=== PATIENT | male | born 1940 | race African-American/Black ===

== ENCOUNTER 2019-04-19 08:29 | Emergency (ER) | payer MEDICARE, MEDICAID ==
[~2019-04-19] VITALS: Ht 188 cm; Wt 98.0 kg
[~2019-04-19 08:29] MED LIST: ALLO300T2 PO; AMLO10TA80 PO; ATOR10TA69 PO; DOCU-150 PO; LOSA100T32 PO; METO100T16 PO
[2019-04-19 09:26] LABS: CLARITY URINE CLEAR (CLEAR); COLOR URINE YELLOW (YELLOW); KETONES URINE 1+ (NEGATIVE); LEUKOCYTE ESTERASE URINE NEGATIVE (NEGATIVE); NITRITE URINE NEGATIVE (NEGATIVE); OCCULT BLOOD URINE NEGATIVE (NEGATIVE); PH URINE 6.5 (4.5-8.0); PROTEIN URINE NEGATIVE (NEGATIVE); SPECIFIC GRAVITY URINE 1.023 (1.005-1.030)
[2019-04-19 10:05] LABS: BASOPHILS % 0.9 % (0.0-2.0); EOSINOPHILS % 1.8 % (0.0-5.0); HEMATOCRIT. 46.4 % (42.0-52.0); HEMOGLOBIN. 15.1 g/dL (14.0-18.0); LYMPHOCYTES % 19.9 % (20.0-50.0); MEAN CORPUSCULAR HEMOGLOBIN 30.5 pg (28.0-32.0); MEAN CORPUSCULAR VOLUME 93.5 fL (80.0-94.0); MEAN PLATELET VOLUME 9.1 fl (7.4-10.4); MONOCYTES % 6.8 % (2.0-8.0); NEUTROPHILS % 70.6 % (40.0-76.0); PLATELET 153 x1000/uL (130-400); RED BLOOD CELL COUNT 4.96 mill/uL (4.7-6.1); RED CELL DISTRIBUTION WIDTH 15.9 % (11.6-14.6)
[2019-04-19 10:11] LABS: CHLORIDE 108 mEq/L (98-107)
[2019-04-19] MEDS ORDERED: SODIUM CHLORIDE 0.9% 500 ML IV ONE (10:30)
[2019-04-19 13:00] VITALS: BP 156/85
== END 2019-04-19 13:41 | disposition short-term general hospital (02) ==
LOC: ER 08:29
DX: S01.81XA Laceration without foreign body of other part of head, initial encounter (principal); W06.XXXA Fall from bed, initial encounter; Y93.89 Activity, other specified; Y92.89 Other specified places as the place of occurrence of the external cause; Y99.8 Other external cause status; I10 Essential (primary) hypertension; Z86.73 Personal history of transient ischemic attack (TIA), and cerebral infarction without residual deficits; M10.9 Gout, unspecified; Z79.899 Other long term (current) drug therapy
CPT/HCPCS: 36415; 70450; 70486; 71045; 72125; 80053; 81003; 83880; 84484; 85025; 93005; 96360; 99285; J7040

== ENCOUNTER 2019-07-27 12:56 | Inpatient (IN) | payer MEDICARE, MEDICAID ==
[~2019-07-27] VITALS: Ht 188 cm; Wt 90.8 kg
[2019-07-27 14:33] LABS: BASOPHILS % 0.7 % (0.0-2.0); EOSINOPHILS % 0.5 % (0.0-5.0); HEMATOCRIT. 46.9 % (42.0-52.0); HEMOGLOBIN. 15.6 g/dL (14.0-18.0); MEAN CORPUSCULAR HEMOGLOBIN 30.9 pg (28.0-32.0); MEAN CORPUSCULAR VOLUME 93.3 fL (80.0-94.0); MEAN PLATELET VOLUME 8.7 fl (7.4-10.4); MONOCYTES % 5.3 % (2.0-8.0); NEUTROPHILS % 85.5 % (40.0-76.0); PLATELET 148 x1000/uL (130-400); RED BLOOD CELL COUNT 5.03 mill/uL (4.7-6.1); RED CELL DISTRIBUTION WIDTH 15.2 % (11.6-14.6)
[2019-07-27 14:42] LABS: CHLORIDE 111 mEq/L (98-107)
[2019-07-27] MEDS ORDERED: SODIUM CHLORIDE 0.9% 500 ML IV ONE (15:45)
[2019-07-27 16:17] LABS: CLARITY URINE CLOUDY (CLEAR); COLOR URINE YELLOW (YELLOW); KETONES URINE TRACE (NEGATIVE); LEUKOCYTE ESTERASE URINE 1+ (NEGATIVE); NITRITE URINE NEGATIVE (NEGATIVE); OCCULT BLOOD URINE NEGATIVE (NEGATIVE); PROTEIN URINE TRACE (NEGATIVE)
[2019-07-27] MEDS ORDERED: IPRATROPIUM/ALBUTEROL 0.5-3(2.5)MG/3ML NEB HHN PRN (17:15)
[2019-07-27] MEDS ORDERED: DIPHENHYDRAMINE 50MG/ML VIAL IV PRN (17:15)
[2019-07-27] MEDS ORDERED: ONDANSETRON HCL 4MG/2ML INJ IV PRN (17:15)
[2019-07-27] MEDS ORDERED: CLONIDINE 0.1MG TABLET PO PRN (17:15)
[2019-07-27 17:41] LABS: PHOSPHORUS 2.2 mg/dL (2.5-4.9)
[2019-07-27] MEDS: SODIUM CHLORIDE 0.9% 1,000 ML IV SCH (18:04)
[2019-07-27] MEDS ORDERED: CEFTRIAXONE 1 G PREMIX 50 ML IV NR (19:00)
[2019-07-27 22:40] VITALS: BP_SYST 145; BP_SYST 147; BP_DIAS 73
[2019-07-27 22:50] VITALS: BP 145/73
[2019-07-27] MEDS ORDERED: ENOXAPARIN 100MG/ML SYR SUBCUT NR (23:28)
[2019-07-28] MEDS ORDERED: DEXTROSE 50% WATER 50ML SYRINGE IV PRN (01:00)
[2019-07-28] MEDS ORDERED: ENOXAPARIN 100MG/ML SYR SUBCUT NR (01:44)
[2019-07-28 04:00] VITALS: BP 148/88
[2019-07-28] MEDS: SODIUM CHLORIDE 0.9% 1,000 ML IV SCH ×2 (04:41→15:03)
[2019-07-28] MEDS: BLOOD SUGAR DIAGNOSTIC STRIP TEST SCH ×4 (06:55→21:00)
[2019-07-28] MEDS: INSULIN LISPRO 100 UNITS/ML SUBCUT SCH ×4 (06:55→21:00)
[2019-07-28 07:10] LABS: INR 1.1
[2019-07-28 07:51] LABS: BASOPHILS % 0.7 % (0.0-2.0); EOSINOPHILS % 3.9 % (0.0-5.0); HEMATOCRIT. 41.3 % (42.0-52.0); LYMPHOCYTES % 25.6 % (20.0-50.0); MEAN CORPUSCULAR HEMOGLOBIN 31.4 pg (28.0-32.0); MEAN CORPUSCULAR VOLUME 92.3 fL (80.0-94.0); MEAN PLATELET VOLUME 9.4 fl (7.4-10.4); MONOCYTES % 9.2 % (2.0-8.0); NEUTROPHILS % 60.6 % (40.0-76.0); PLATELET 138 x1000/uL (130-400); RED BLOOD CELL COUNT 4.48 mill/uL (4.7-6.1); RED CELL DISTRIBUTION WIDTH 14.9 % (11.6-14.6)
[2019-07-28 08:00] VITALS: BP 145/87
[2019-07-28 12:00] VITALS: BP 128/81
[2019-07-28 13:50] LABS: CHLORIDE 112 mEq/L (98-107)
[2019-07-28] MEDS ORDERED: CEFTRIAXONE 1 G PREMIX 50 ML IV SCH (14:00)
[2019-07-28 14:04] LABS: LDL CHOLESTEROL 33 mg/dL (5-100)
[2019-07-28 14:06] LABS: HDL CHOLESTEROL 41 mg/dL (40-59)
[2019-07-28 16:00] VITALS: BP 148/87
[2019-07-28] MEDS: ENOXAPARIN 100MG/ML SYR SUBCUT SCH (18:10)
[2019-07-28 20:00] VITALS: BP 146/84
[2019-07-28] MEDS: AMLODIPINE 2.5MG TABLET PO SCH (22:15)
[2019-07-29] VITALS: BP 159/84
[2019-07-29] MEDS: SODIUM CHLORIDE 0.9% 1,000 ML IV SCH ×2 (01:53→14:10)
[2019-07-29 04:00] VITALS: BP 155/84
[2019-07-29] MEDS: ENOXAPARIN 100MG/ML SYR SUBCUT SCH ×2 (05:47→18:12)
[2019-07-29] MEDS: INSULIN LISPRO 100 UNITS/ML SUBCUT SCH ×4 (06:28→21:00)
[2019-07-29] MEDS: BLOOD SUGAR DIAGNOSTIC STRIP TEST SCH ×4 (06:28→21:41)
[2019-07-29 07:53] LABS: BASOPHILS % 0.8 % (0.0-2.0); EOSINOPHILS % 5.8 % (0.0-5.0); HEMATOCRIT. 45.7 % (42.0-52.0); HEMOGLOBIN. 15.4 g/dL (14.0-18.0); LYMPHOCYTES % 30.5 % (20.0-50.0); MEAN CORPUSCULAR HEMOGLOBIN 31.2 pg (28.0-32.0); MEAN CORPUSCULAR VOLUME 92.5 fL (80.0-94.0); MEAN PLATELET VOLUME 9.2 fl (7.4-10.4); MONOCYTES % 8.3 % (2.0-8.0); NEUTROPHILS % 54.6 % (40.0-76.0); PLATELET 128 x1000/uL (130-400); RED BLOOD CELL COUNT 4.94 mill/uL (4.7-6.1); RED CELL DISTRIBUTION WIDTH 15.1 % (11.6-14.6)
[2019-07-29 08:00] VITALS: BP 137/86
[2019-07-29 08:16] LABS: CHLORIDE 105 mEq/L (98-107)
[2019-07-29] MEDS: AMLODIPINE 2.5MG TABLET PO SCH ×2 (09:20→21:41)
[2019-07-29 12:00] VITALS: BP 143/86
[2019-07-29] MEDS: CEFTRIAXONE 1 G PREMIX 50 ML IV SCH (14:10)
[2019-07-29 15:44] VITALS: BP_SYST 139; BP_SYST 142; BP_SYST 155; BP_DIAS 105; BP_DIAS 82; BP_DIAS 88
[2019-07-29 20:00] VITALS: BP_SYST 120; BP_SYST 144; BP_DIAS 78; BP_DIAS 84
[2019-07-30] VITALS (7 sets, daily range): BP systolic 109–149; BP diastolic 52–95
[2019-07-30 05:19] LABS: BASOPHILS % 0.7 % (0.0-2.0); EOSINOPHILS % 5.7 % (0.0-5.0); HEMATOCRIT. 43.4 % (42.0-52.0); HEMOGLOBIN. 14.5 g/dL (14.0-18.0); LYMPHOCYTES % 31.4 % (20.0-50.0); MEAN CORPUSCULAR HEMOGLOBIN 30.8 pg (28.0-32.0); MEAN CORPUSCULAR VOLUME 92.3 fL (80.0-94.0); MEAN PLATELET VOLUME 8.8 fl (7.4-10.4); MONOCYTES % 8.1 % (2.0-8.0); NEUTROPHILS % 54.1 % (40.0-76.0); PLATELET 144 x1000/uL (130-400); RED BLOOD CELL COUNT 4.71 mill/uL (4.7-6.1); RED CELL DISTRIBUTION WIDTH 14.9 % (11.6-14.6)
[2019-07-30 05:21] LABS: CHLORIDE 105 mEq/L (98-107)
[2019-07-30] MEDS: ENOXAPARIN 100MG/ML SYR SUBCUT SCH (05:58)
[2019-07-30] MEDS: BLOOD SUGAR DIAGNOSTIC STRIP TEST SCH ×4 (05:58→21:36)
[2019-07-30] MEDS: SODIUM CHLORIDE 0.9% 1,000 ML IV SCH ×2 (06:53→21:39)
[2019-07-30] MEDS: INSULIN LISPRO 100 UNITS/ML SUBCUT SCH ×4 (06:54→21:00)
[2019-07-30] MEDS ORDERED: POTASSIUM CHLORIDE 20MEQ TABLET SR PO SCH (08:45)
[2019-07-30] MEDS: AMLODIPINE 2.5MG TABLET PO SCH ×2 (09:33→21:36)
[2019-07-30] MEDS: POTASSIUM CHLORIDE 20MEQ TABLET SR PO SCH (09:33)
[2019-07-30] MEDS ORDERED: APIX5TAB MT (11:30)
[2019-07-30] MEDS ORDERED: IOHEXOL-350 100 ML BOTTLE ONE (16:31)
[2019-07-30] MEDS: CEFTRIAXONE 1 G PREMIX 50 ML IV SCH (17:18)
[2019-07-30] MEDS: APIXABAN 5 MG TABLET PO SCH (17:18)
[2019-07-31] VITALS (7 sets, daily range): BP systolic 138–152; BP diastolic 80–92
[2019-07-31 06:31] LABS: BASOPHILS % 0.6 % (0.0-2.0); EOSINOPHILS % 6.9 % (0.0-5.0); HEMATOCRIT. 43.9 % (42.0-52.0); HEMOGLOBIN. 14.4 g/dL (14.0-18.0); LYMPHOCYTES % 30.9 % (20.0-50.0); MEAN CORPUSCULAR HEMOGLOBIN 30.3 pg (28.0-32.0); MEAN CORPUSCULAR VOLUME 92.5 fL (80.0-94.0); MONOCYTES % 8.6 % (2.0-8.0); PLATELET 145 x1000/uL (130-400); RED BLOOD CELL COUNT 4.74 mill/uL (4.7-6.1); RED CELL DISTRIBUTION WIDTH 15.1 % (11.6-14.6)
[2019-07-31] MEDS: BLOOD SUGAR DIAGNOSTIC STRIP TEST SCH ×3 (06:40→17:23)
[2019-07-31] MEDS: INSULIN LISPRO 100 UNITS/ML SUBCUT SCH ×3 (06:40→17:15)
[2019-07-31 06:58] LABS: CHLORIDE 108 mEq/L (98-107)
[2019-07-31] MEDS: APIXABAN 5 MG TABLET PO SCH ×2 (08:31→17:29)
[2019-07-31] MEDS: POTASSIUM CHLORIDE 20MEQ TABLET SR PO SCH (08:31)
[2019-07-31] MEDS: AMLODIPINE 2.5MG TABLET PO SCH (08:32)
[2019-07-31] MEDS: SODIUM CHLORIDE 0.9% 1,000 ML IV SCH (10:15)
[2019-07-31] MEDS: CEFTRIAXONE 1 G PREMIX 50 ML IV SCH (14:31)
[2019-08-06] MEDS ORDERED: APIXABAN 5 MG TABLET PO SCH (17:00)
== END 2019-07-31 18:48 | disposition home or self-care (01) | DRG 74 ==
LOC: ER 12:56 → 5WST 16:18 → EDBEDREQ 16:21 → ENRESERV 21:47
PROVIDERS: ADMIT Internal Medicine; ATTEND Internal Medicine
PROC: 4B02XSZ Measurement of Cardiac Pacemaker, External Approach (ICD-10-PCS; principal; 2019-07-29)
DX: G90.8 Other disorders of autonomic nervous system (principal); N39.0 Urinary tract infection, site not specified; E87.2 Acidosis; I42.9 Cardiomyopathy, unspecified; I82.432 Acute embolism and thrombosis of left popliteal vein; I82.412 Acute embolism and thrombosis of left femoral vein; I47.1 Supraventricular tachycardia; E87.6 Hypokalemia; F03.90 Unspecified dementia, unspecified severity, without behavioral disturbance, psychotic disturbance, mood disturbance, and anxiety; I10 Essential (primary) hypertension; Z86.73 Personal history of transient ischemic attack (TIA), and cerebral infarction without residual deficits; Z95.0 Presence of cardiac pacemaker; Z79.899 Other long term (current) drug therapy
CPT/HCPCS: 36415; 71045; 71275; 80048; 80053; 80061; 81003; 82962; 83036; 83605; 83735; 83880; 84100; 84443; 84484; 85025; 93005; 93306; 93880; 93970; 99285; J0696; J1650; J7030; Q9967